=== PATIENT | female | born 1965 | race Caucasian/White ===

== ENCOUNTER 2017-12-04 07:49 | Day surgery (SDC) | payer BC, OTHER ==
[~2017-12-04 07:49] MED LIST: EPINEPHRINE INJ 1 MG/10 ML DISP.SYRIN ONE; FLUMAZENIL INJ 0.5 MG/5 ML VIAL ONE; GLUCAGON,HUMAN RECOMB 1 MG INJ ONE; GLYCOPYRROLATE INJ 0.4 MG/2 ML VIAL ONE; NALOXONE HCL INJ/PF 0.4 MG/1 ML SDV ONE; ONDANSETRON HCL INJ/PF 4 MG/2 ML SDV ONE
[2017-12-04] MEDS: MIDAZOLAM 2 MG/2 ML INJ ONE ×5 (08:36→09:15)
[2017-12-04] MEDS: FENTANYL CITRATE INJ/PF 100 MCG/2 ML AMPUL ONE ×2 (08:38→09:13)
--- NOTE | 2017-12-04 09:46 | PDOC DISCHARGE SUMMARY ---
Discharge Summary (SDC) - Discharge Final Diagnosis: 1. FAP 2. Small Rectal polyp 3. S/P TAC Date of Surgery: 12/04/17 Discharge Date: 12/04/17 Condition: Good Treatment or Instructions: [address] [address] POST ENDOSCOPY DISCHARGE INSTRUCTIONS 1. Diet: Start clear liquids that a regular diet as tolerated. 2. Resume all preoperative medications. All oral anticoagulants and aspirins can be resumed 24 hours after procedure. 3. If a polypectomy was performed some bleeding per rectum may occur. This should stop within 3 days. If not, please contact the office. 4. If you had a colonoscopy you may experience some bloating and delayed return of normal bowel function for several days, your regular bowel movement pattern should resume within a week. 5. Please contact [facility] at to make an appointment with Dr. Blake for 1 to 3 weeks following procedure. 6. If you have any questions or concerns regarding your care,treatment plan or follow up, please contact our office. 7. Per clinical guidelines we recommend you undergo a repeat upper and lower endoscopy in one year. Referrals: VALERIANO LAWRENCE MD [Primary Care Provider] - Discharge Diet: As Tolerated Discharge Activity: Activity As Tolerated Home Care Assistance: None Needed Report the Following to Your Physician Immediately: Shortness of Breath, Increase in Pain, Fever over 101 Degrees
[2017-12-04 10:18] VITALS: BP 143/77
--- NOTE | 2017-12-04 10:23 | OPERATIVE REPORT E ---
Operative Report NAME: BARB LEE : 1965 AGE: 52Y DATE OF SURGERY: 12/04/2017 ROOM: PREOPERATIVE DIAGNOSES: 1. History of familial adenomatous polyposis syndrome. 2. History of multiple gastric polyps (polyposis). 3. Status post total colectomy with ileorectostomy. POSTOPERATIVE DIAGNOSES: 1. History of familial adenomatous polyposis syndrome. 2. History of multiple gastric polyps (polyposis). 3. Status post total colectomy with ileorectostomy. 4. Solitary small rectal polyp. PROCEDURE: 1. Esophagogastroduodenoscopy. 2. Cold forceps biopsy of gastric antrum and GE junction. 3. Gastric polypectomy x4. 4. Flexible endoscopy through the anorectal canal through the distal ileum, total advancement of scope to 45 cm using a pediatric colonoscope. 5. Rectal polypectomy. SURGEON: MORIAH BLAKE M.D. ANESTHESIA: IV sedation. COMPLICATIONS: None. ESTIMATED BLOOD LOSS: Scant. DRAINS: None. TISSUE REMOVED: Biopsies and polyps as described above. SUMMARY OF PROCEDURE: Patient was taken from the preop holding area to the endoscopy suite where conscious sedation was induced. She was placed in a semirecumbent left lateral decubitus position, mouthpiece inserted. Surgical plan and surgical timeout discussed. The flexible adult upper endoscope was advanced through the hypopharynx, through the esophagus, through the stomach and into the duodenum. This was well tolerated by the patient. The duodenum, first and second portion, was grossly normal. The scope was withdrawn through the pylorus checking the mucosa carefully. The antrum was mildly inflamed with some punctate spots of old blood. A cold forceps biopsy was obtained of the gastric antrum and sent for KAIDEN. The body of the stomach was replete with multiple fundic polyps. Approximately 4 were removed using the cold forceps device, and sent as gastric polyps. Bleeding was minimal. No polyps appeared to be malignant based on small size and general mucosal appearance. The scope was retroflexed in the stomach and a good look at the GE junction, as well as the gastric cardia was obtained. There was a small hiatal hernia. No other pathology seen. Scope was straightened and brought back through the GE junction. Photos were taken of the Z line. A small biopsy was obtained of the GE junction and sent for histologic analysis. Bleeding was minimal. The scope was withdrawn through the rest of the esophagus which was unremarkable. This concluded the upper endoscopic portion of the operation. The patient was placed in the extreme left lateral position, instrumentation switched, and flexible proctoscopy performed. A rectal exam was performed by Dr. Blake. There was no visible or palpable anorectal pathology. The flexible pediatric colonoscope was advanced through the anorectal canal, through the ileorectal anastomosis at approximately 12 cm and up the terminal ileum for a distance of approximately 45 cm. The terminal ileum was grossly unremarkable. The scope was withdrawn through the terminal ileum, again through the ileorectostomy which was normal. Photos were taken of the stapled anastomosis. There was a small rectal polyp versus lymphoid hyperplasia that was removed with the cold forceps device. Bleeding was minimal. The specimen was sent as rectal polyp. The remainder of the anorectal canal was unremarkable. The scope was withdrawn. Patient tolerated procedure well. She was taken to the recovery room in stable condition. Per vigorous accelerated surveillance practices with this patient, we will see her back in the office for followup upper and lower endoscopy in approximately 1 year. DICTATING PHYSICIAN: MORIAH BLAKE M.D. [id number] PHY#: [id number] ID: [id number] JOB#: [id number] ACCT: [id number] cc:MORIAH BLAKE M.D. > MTDD
== END 2017-12-04 10:23 | disposition home or self-care (01) ==
LOC: END 07:49
PROVIDERS: ATTEND Surgery
PROC: 0DB68ZX Excision of Stomach, Via Natural or Artificial Opening Endoscopic, Diagnostic (ICD-10-PCS; principal; 2017-12-04 08:15)
PROC: 0DBP8ZX Excision of Rectum, Via Natural or Artificial Opening Endoscopic, Diagnostic (ICD-10-PCS; 2017-12-04 08:15)
DX: Z12.11 Encounter for screening for malignant neoplasm of colon (principal); K31.7 Polyp of stomach and duodenum; K31.9 Disease of stomach and duodenum, unspecified; D12.8 Benign neoplasm of rectum; Z83.71 Family history of colonic polyps; Z90.49 Acquired absence of other specified parts of digestive tract; F17.210 Nicotine dependence, cigarettes, uncomplicated; Z80.3 Family history of malignant neoplasm of breast
CPT/HCPCS: 43239; 45380; 88342 ×2; 88305 ×2; J2250; J3010; J0171; J1610; J2310; J2405; J3490